=== PATIENT | female | born 1995 | race Hispanic/Latino ===

== ENCOUNTER 2017-09-08 15:37 | Emergency (ER) | payer BC ==
[2017-09-08 16:20] VITALS: BMI 17.4
--- NOTE | 2017-09-08 16:49 | C.PDOC ---
History Of Present Illness <Warner Awan - Last Filed: 09/08/17 16:44> <Simon Bhatti - Last Filed: 09/08/17 19:29> This is a 21 y/o female with a hx of austism, seizure d/o (no longer on any meds , no seizure x 2-3 years), and mild intermittent asthma presenting with a two day hx of relapsing-remitting pains that are distributed widely throughout the body. She localizes the pain to several areas of the body including the shoulders, legs, arms, head, abdomen, and back. All of the episodes of pain are minutes in duration and resolve on their own. Mom is at bedside and states that yesterday she gave the patient tylenol to help with aches however she had aches later in the day despite the tylenol. She denies trauma, falls, fevers, chills, SOB, diarrhea, constipation, numbness, weakness, tingling. (Warner Awan) History Per: Patient, Family History/Exam Limitations: other (mental disability- autism) Onset/Duration Of Symptoms: Days Current Symptoms Are (Timing): Still Present Severity: Mild Pain Scale Rating Of: 3 Quality: Dull, Aching Associated Symptoms: denies: Nausea, Dyspnea, Syncope Alleviating Factors: None <Warner Awan - Last Filed: 09/08/17 16:44> <Simon Bhatti - Last Filed: 09/08/17 19:29> Chief Complaint (Nursing): Chest Pain Past Medical History - Medical History PMH: Asthma (mild intermittent), Seizures (not on meds- no seizure in 2-3 years) Other PMH: autism Surgical History: No Surg Hx Family History: States: Unknown Family Hx - Social History Hx Alcohol Use: No Hx Substance Use: No - Immunization History Hx Tetanus Toxoid Vaccination: No Hx Influenza Vaccination: Yes (2015) Hx Pneumococcal Vaccination: No <Warner Awan - Last Filed: 09/08/17 16:44> Vital Signs: Last Vital Signs Temp 99.0 F 09/08/17 16:20 Pulse 87 09/08/17 16:20 Resp 17 09/08/17 16:20 BP 99/67 L 09/08/17 16:20 Pulse Ox 100 09/08/17 19:28 Review Of Systems Constitutional: Negative for: Fever, Chills, Weakness ENT: Negative for: Ear Pain Cardiovascular: Positive for: Chest Pain. Negative for: Palpitations, Orthopnea Respiratory: Negative for: Cough, Shortness of Breath Gastrointestinal: Positive for: Abdominal Pain. Negative for: Nausea, Vomiting , Diarrhea, Constipation Genitourinary: Negative for: Dysuria Musculoskeletal: Positive for: Neck Pain, Shoulder Pain, Arm Pain, Back Pain, Hand Pain, Leg Pain, Foot Pain, Other (diffuse body pains intermittently) Neurological: Negative for: Weakness, Numbness, Seizures <Warner Awan S - Last Filed: 09/08/17 16:44> Physical Exam - Physical Exam Appears: Well, No Acute Distress Skin: Warm, Dry Head: Atraumatic, Normacephalic Eye(s): bilateral: PERRL, EOMI Oral Mucosa: Moist Throat: Normal, No Erythema Neck: Normal, Normal ROM, Supple Chest: No Deformity, No Tenderness Cardiovascular: Rhythm Regular Respiratory: Normal Breath Sounds, No Rales, No Rhonchi, No Wheezing Gastrointestinal/Abdominal: Bowel Sounds, Soft, No Tenderness, No Guarding Extremity: Normal ROM, No Tenderness, No Calf Tenderness, No Deformity Extremity: Bilateral: Atraumatic, Hips Non-Tender Neurological/Psych: Oriented x3, Normal Speech <Warner Awan S - Last Filed: 09/08/17 16:44> ED Course And Treatment O2 Sat by Pulse Oximetry: 100 <Warner Awan S - Last Filed: 09/08/17 16:44> - Laboratory Results Result Diagrams: 09/08/17 17:06 09/08/17 17:06 ECG: Interpreted By Me, Viewed By Me ECG Rhythm: Sinus Rhythm ECG Interpretation: Normal, No Acute Changes Interpretation Of ECG: EKG NSR at 81 BPM, normal axis, normal intervals non specific T wave changes. Rate From EC O2 Sat by Pulse Oximetry: 100 (On RA) Pulse Ox Interpretation: Normal <Simon Bhatti M - Last Filed: 09/08/17 19:29> Medical Decision Making <Warner Awan S - Last Filed: 09/08/17 16:44> <Simon Bhatti M - Last Filed: 09/08/17 19:29> Medical Decision Making: CBC, CMP, urine , UA, CK used to assess for underlying pathologies Toradol 10mg PO administered in ED for pain relief (Warner Awan) On reeva;luation pt c/o cp and dizziness ekg reviewed and added d dimer to work up. Case was signed out to Dr. Hercules for further evaluation. (Simon Bhatti) Disposition <Warner Awan - Last Filed: 09/08/17 16:44> - Disposition Disposition Time: 19:20 <Simon Bhatti - Last Filed: 09/08/17 19:29> - Disposition Condition: STABLE Forms: [address] ([place]) - Clinical Impression Clinical Impression: Chest pain, Musculoskeletal pain
[2017-09-08 17:08] LABS: BASO % 1.1 % (0.0-2.0); EOS # 0.1 K/uL (0.0-0.7); EOS % 1.2 % (0.0-4.0); HEMATOCRIT 34.1 % (34.0-47.0); LYMPH # 1.6 K/uL (1.0-4.3); LYMPH % 36.4 % (20.0-40.0); MEAN CELL VOLUME 84.1 fL (81.0-99.0); MEAN CORPUSCULAR HEMOGLOBIN 27.4 pg (27.0-31.0); MEAN CORPUSCULAR HGB CONC 32.5 g/dL (33.0-37.0); MEAN PLATELET VOLUME 7.2 fL (7.2-11.7); MONO # 0.4 K/uL (0.0-0.8); MONO % 10.2 % (0.0-10.0); RED CELL DISTRIBUTION WIDTH 13.7 % (11.5-14.5); WHITE BLOOD COUNT 4.3 K/uL (4.8-10.8)
[2017-09-08 17:27] LABS: ALB/GLOB RATIO 1.3 (1.0-2.1); ALKALINE PHOSPHATASE 55 U/L (38-126); ALT/SGPT 36 U/L (9-52); AST/SGOT 24 U/L (14-36); BLOOD UREA NITROGEN 11 mg/dL (7-17); CALCIUM 8.3 mg/dl (8.6-10.4); GFR AFRICAN-AMERICAN > 60; GLUCOSE,RANDOM 82 mg/dL (65-105); TOTAL PROTEIN 7.6 g/dL (6.3-8.3)
[2017-09-08] MEDS ORDERED: SODIUM CHLORIDE 0.9% IR STA (18:19)
[2017-09-08] MEDS ORDERED: Sodium Chloride 0.9% 1,000 ML IV ONE (18:29)
[2017-09-08 18:57] LABS: RBC URINE 2 /hpf (0-3); URINE BACTERIA RARE (<OCC); URINE BILIRUBIN NEGATIVE (NEGATIVE); URINE BLOOD NEGATIVE (NEGATIVE); URINE COLOR Yellow (YELLOW); URINE GLUCOSE (UA) NORMAL (Normal); URINE KETONE NEGATIVE (NEGATIVE); URINE LEUKOCYTE ESTERASE NEG Leu/uL (Negative); URINE PROTEIN NEGATIVE (NEGATIVE); WBC URINE 1 /hpf (0-5)
[2017-09-08 19:46] LABS: CARBON DIOXIDE 21 mmol/L (22-30); CHLORIDE 102 mmol/L (98-107); SODIUM 136 mmol/L (132-148)
[2017-09-08] MEDS ORDERED: Alum-Mag Hydrox-Simethicone Susp (30 mL) PO STA (20:12)
[2017-09-08] MEDS ORDERED: Aluminum Hydroxide/Magnesium Hydroxide Susp (30 mL) ONE (20:24)
[2017-09-08 20:56] VITALS: BP 96/63; PULSE 76; RESP 18; TEMP 98.2; O2SAT 98
--- NOTE | 2017-09-09 08:15 | RAD ---
HISTORY: cough COMPARISON: None available. TECHNIQUE: Chest PA and lateral FINDINGS: LUNGS: No focal consolidation. Subtle 10 mm nodular density at the right lateral mid chest favored to reflect nipple shadow. Please note that chest x-ray has limited sensitivity for the detection of pulmonary masses. PLEURA: No significant pleural effusion identified. No definite pneumothorax . CARDIOVASCULAR: The cardiomediastinal silhouette appears within normal limits of size. OSSEOUS STRUCTURES: No acute osseous abnormality identified. VISUALIZED UPPER ABDOMEN: Unremarkable. OTHER FINDINGS: None. IMPRESSION: No acute findings. Additional findings as above.
--- NOTE | 2017-09-10 10:36 | CARD ---
APPROVED REPORT EKG Measurement Heart [id number] <Conclusion> Normal sinus rhythm Normal ECG
== END 2017-09-08 20:57 | disposition home or self-care (01) ==
LOC: C.ER 15:37
DX: R07.89 Other chest pain (principal)
CPT/HCPCS: 71020; 80053; 81001; 82550; 84484; 85025; 85378; 93005; 96361; 96374; 96375; 99284; J1885; J2405; J7040

== ENCOUNTER → 2019-02-13 | Outpatient (CLI) | payer BC, MEDICAID | LOC: C.RADH 10:00 | DX: K21.9 Gastro-esophageal reflux disease without esophagitis (principal) ==